=== PATIENT | female | born 1980 | race Caucasian/White ===

== ENCOUNTER 2018-11-30 08:31 | Day surgery (SDC) | payer OTHER, BC ==
[~2018-11-30] VITALS: Ht 157.5 cm; Wt 64.4 kg
[~2018-11-30 08:31] MED LIST: HYDROmorphone 2 MG/ML VIAL IV PRN; IV RINGERS,LACTATED 1000ML 1,000 ML IV SCH; LIDOCAINE 1% PF 2 ML VIAL. ID PRN; LIDOCAINE 2% PF Vial for OR 5 ML VIAL. ONE; ONDANSETRON PF 4 MG/2 ML VIAL. IV PRN; PHEN37.598 PO; PROCHLORPERAZINE 10 MG/2 ML VIAL. IV PRN; PROPOFOL 20 ML IV ONE; ROCURONIUM 50 MG/5 ML VIAL. ONE; SUCCINYLCHOLINE 200 MG/10 ML VIAL. ONE; fentaNYL PF VIAL 100 MCG/2 ML VIAL IV PRN; fentaNYL PF VIAL 100 MCG/2 ML VIAL ONE
[2018-11-30] MEDS ORDERED: fentaNYL PF VIAL 100 MCG/2 ML VIAL ONE ×3 (08:33→13:08)
[2018-11-30] MEDS ORDERED: NAPR220C4 PO (08:55)
[2018-11-30 09:04] LABS: U PREG PATIENT NEGATIVE (NEG)
[2018-11-30] MEDS ORDERED: DEXAMETHASONE SOD PHOS 20 MG/5 ML VIAL. ONE (09:07)
[2018-11-30] MEDS ORDERED: SURGICEL HEMOSTAT 4X8 EACH. ONE (09:25)
[2018-11-30] MEDS ORDERED: IOHEXOL 300 MG/ML 100ML VIAL. ONE (09:25)
[2018-11-30] MEDS ORDERED: BUPIVAC MPF-EPI 0.5%-1:200000 30 ML VIAL. ONE (09:25)
[2018-11-30] MEDS ORDERED: GLUCAGON,HUMAN RECOMBINANT 1 MG/ML VIAL. ONE (09:25)
[2018-11-30] MEDS ORDERED: ONDANSETRON PF 4 MG/2 ML VIAL. ONE (10:03)
[2018-11-30] MEDS ORDERED: DESFLURANE 31 TO 60 MINUTES IH ONE (10:03)
[2018-11-30] MEDS ORDERED: NEOSTIGMINE 10 MG/10 ML VIAL. ONE (10:03)
[2018-11-30] MEDS ORDERED: GLYCOPYRROLATE 1 MG/5 ML VIAL. ONE (10:04)
[2018-11-30] MEDS ORDERED: PROCHLORPERAZINE 10 MG/2 ML VIAL. ONE (10:39)
--- NOTE | 2018-11-30 10:48 | RAD ---
Intraoperative cholangiogram 11/30/2018 Clinical indication: Cholangiogram. COMPARISON: None. Findings/technique: Total fluoroscopy time 14 seconds. 3 fluoroscopic spot images were obtained. A radiologist was not present for the procedure. There is opacification of the central intra and extrahepatic biliary ducts without evidence of focal filling defect. There is contrast opacification of the 2nd portion of the duodenum. On the initial coal chute worker image, there is and oval, laminated high density structure projected just medial to the common hepatic duct. Partial visualization of a nasogastric tube. There are coiled wires overlying the lower thoracic and upper lumbar spine level. IMPRESSION: 1. On the initial frontal coal chute worker image, lamellated high density adjacent to the common hepatic duct which is indeterminate, and may be overlying the patient no retained foreign body is not excluded. Clinical correlation is recommended. 2. No evidence of biliary ductal filling defect. Electronically signed by: Jarred Arenas MD (11/30/2018 10:44 AM) [facility]
[2018-11-30] MEDS: fentaNYL PF VIAL 100 MCG/2 ML VIAL IV PRN ×3 (10:56→13:10)
--- NOTE | 2018-11-30 11:02 | PDOC ---
BRIEF OPERATIVE NOTE Date: Nov 30, 2018 Pre-Op Diagnosis symptomatic cholelithiasis Post-Op Diagnosis same Procedure Performed l/s cholecystectomy Surgeon [facility] Anesthesia Type: General Blood Loss 10cc IV Fluid 800cc Specimens Obtained GB Findings supple GB, normal grams Complications none Operative Note WK # [id number] REBEKA PULIDO MD Nov 30, 2018 11:02
[2018-11-30] MEDS ORDERED: MORPHINE SULFATE 4 MG/ML VIAL. ONE (11:04)
--- NOTE | 2018-11-30 11:07 | DISCH ---
DISCHARGE INSTRUCTIONS Condition on Discharge Condition on Discharge: Stable Activity After Discharge Activity Instructions for Disc: Activity as tolerated, Avoid exertion Lifting Instructions after Dis: No heavy lifting Driving Instructions after Dis: Do not drive (3-4 days) Diet after Discharge Diet after Discharge: Regular Wound Incision Care Wound/Incision Care: Ice to area for comfort Other wound/incision instructi: March shower Friday Follow-Up Follow up with: Herberth next week REBEKA PULIDO MD Nov 30, 2018 11:07
[2018-11-30] MEDS: MORPHINE SULFATE 4 MG/ML VIAL. IV PRN ×4 (11:09→11:46)
[2018-11-30] MEDS ORDERED: OXYC1TAB15 PO (11:15)
[2018-11-30] MEDS ORDERED: DOCU100T11 PO (11:16)
--- NOTE | 2018-11-30 11:20 | OP ---
DATE OF SURGERY: 11/30/2018 PREOPERATIVE DIAGNOSIS: Symptomatic cholelithiasis. POSTOPERATIVE DIAGNOSIS: Symptomatic cholelithiasis. PROCEDURE: Laparoscopic cholecystectomy with cholangiogram. SURGEON: Rebeka Pulido MD ANESTHESIA: General endotracheal. ESTIMATED BLOOD LOSS: 10 mL. IV FLUID: 800 mL. 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 Ultrasound shows stones. She is brought for cholecystectomy. OPERATIVE FINDINGS: The liver was smooth and sharp. The gallbladder was supple. Cholangiograms were normal. Visual inspection of the abdomen failed to reveal obvious abnormalities. DESCRIPTION OF PROCEDURE: The patient brought to the operating suite, given a general endotracheal anesthetic and the abdomen prepped and draped in usual sterile fashion. An infraumbilical incision was infiltrated with local anesthetic, incised and a 5 mm Visiport used to safely gain access into the abdominal cavity, taking care to avoid injury to abdominal contents. Pneumoperitoneum established. Camera inserted. Inspection carried out with results as noted above. With the table in reverse Trendelenburg rolled to the left, the epigastric and midclavicular ports were placed under direct vision. The lateral port location was used for an "alligator" grasper. The gallbladder was retracted superolaterally and omental adhesions were carefully taken down with blunt and cautery dissection, taking care to avoid injury to the adjacent bowel. The cystic duct and cystic artery were exposed. The duct was clipped on the gallbladder side. Cholangiograms were made. These were normal. In light of this, the catheter was removed. The cystic duct was clipped x 3 and divided, taking care to avoid injury or compromise the common duct. A small anterior and posterior branch of the cystic artery were clipped and divided and a tertiary vessel controlled in similar fashion. The gallbladder was then freed from the bed and placed in an EndoCatch bag. Good hemostasis was present in the fossa without evidence of bile leak. Table returned to level. Gallbladder delivered through the epigastric incision. Epigastric incision closed with interrupted 0 Vicryl suture. Intra-abdominal pressure decreased to 6 cm of water. No bleeding from the epigastric closure or from the midclavicular port site after its removal or from the location of the alligator grasper. Abdomen decompressed, camera removed, no bleeding seen. Skin incisions closed with subcuticular 4-0 Monocryl. Steri-Strips and sterile dressings applied. The patient awakened from her anesthetic and taken to the recovery room in satisfactory condition. REBEKA PULIDO MD DR: CALDERON/leti JOB#: [id number] / [id number]
[2018-11-30] MEDS ORDERED: oxyCODONE/APAP 5/325 1 TAB TABLET ONE (11:23)
[2018-11-30] MEDS ORDERED: oxyCODONE/APAP 5/325 1 TAB TABLET PO ONE (11:30)
[2018-11-30 13:17] VITALS: BP 118/71
--- NOTE | 2018-11-30 13:23 | NUR ---
PT RECEIVED PER WHEELCHAIR FROM PACU PHASE 2. PT HAS NOT BEEN ABLE TO URINATE SINCE PRE OP. NEW LITER OF LR HUNG BY PACU PRIOR TO TRANSPORT TO OPD. VSS. WITH PT.
--- NOTE | 2018-11-30 14:56 | NUR ---
PT STILL UNABLE TO URINATE AFTER 2ND LITER LR. BLADDER SCAN SHOWS 136ML URINE IN BLADDER. ORDERS FOR ADDITIONAL IVF RECEIEVED FROM DR PULIDO. PT V/U.
[2018-11-30] MEDS ORDERED: IV RINGERS,LACTATED 1000ML 1,000 ML IV ONE (15:00)
--- NOTE | 2018-11-30 16:04 | NUR ---
900 CC OF 3RD LITER LR IN. PT ATTEMPTED TO GO TO BR, ONLY VOIDED "A FEW DROPS". BLADDER SCAN SHOWS 960CC IN BLADDER. PT NOW AMBULATING IN HALLS WITH .
--- NOTE | 2018-12-01 17:10 | PATHOLOGY ---
[facility] Accession Number: [id number] . 01 Material submitted: . GALLBLADDER . 01 Clinical history: . Gallstones . 02 Diagnosis: Gallbladder, cholecystectomy: - Chronic cholecystitis. (JPM:[facility]; 12/01/2018) QMS/12/01/2018 . 02 Comment: There are no calculi identified within the gallbladder lumen or specimen container. There is no evidence of malignancy. (JPM:[facility]; 12/01/2018) . 02 Electronically signed: . Cas Samuel MD, Pathologist NPI- [id number] . 01 Gross description: . The specimen is received in formalin, labeled "Paty Durand, gallbladder", is a partially disrupted, gallbladder measuring 6.7 x 2.5 x 1.5 cm with a glistening, cross-yellow serosa. The lumen is filled with yellow-green viscous bile and no discrete calculi. The mucosa is cross-brown and partially covered with yellow flecks. The wall has an average thickness of 0.1 cm. No discrete masses are identified. Materials Planner tissue is submitted in A1. ([facility]; 11/30/2018) [facility] . 02 Pathologist provided ICD-10: K81.1 . 02 CPT . 098158 Specimen Comment: A courtesy copy of this report has been sent to Specimen Comment: [phone]. Specimen Comment: Report sent to Performed at: 01 [facility] [address], [place] [id number] MD Yasmany Doherty MD Phone: [phone] Performed at: 02 [facility] [address] [place], [place] [id number] MD Cas Samuel MD Phone: [phone]
== END 2018-11-30 16:20 | disposition home or self-care (01) ==
LOC: SURG 08:31
PROVIDERS: ATTEND Surgery
DX: K81.1 Chronic cholecystitis (principal); Z79.899 Other long term (current) drug therapy; Z98.890 Other specified postprocedural states; Z72.89 Other problems related to lifestyle
CPT/HCPCS: 47563; 74300; 81025; 88304; A7015; J0330; J0690; J0780; J1100; J2001; J2270; J2405; J2704; J2710; J3010; J3490; J7030; Q9967; J1610